=== PATIENT | male | born 1975 | race Caucasian/White ===

== ENCOUNTER 2016-05-15 22:00 | Emergency (ER) | payer SELFPAY ==
[2016-05-15 22:30] LABS: #Basophils 0.1 thou/uL (0.0-0.2); #Eosinphils 0.2 thou/uL (0.0-0.7); #Lymphocytes 2.1 thou/uL (1.20-3.40); #Monocytes 0.8 thou/uL (0.11-0.59); #Neutrophils 5.5 thou/uL (1.40-6.50); %Basophils 1.7 % (0.0-1.0); %Eosinophils 1.8 % (0.0-10.0); %Monocytes 9.5 % (0.0-10.0); Hematocrit 38.3 % (42.0-52.0); Mean Platelet Volume 5.8 fL (7.4-10.4); White Blood Cell (WBC) Count 8.7 thou/uL (4.8-10.8)
[2016-05-15 22:38] LABS: ALT (SGPT) 11 U/L (0-55); AST (SGOT) 18 U/L (5-34); Acetaminophen Less than 3.0 mcg/mL (10.0-30.0); Alkaline Phosphatase 43 U/L (40-150); Anion Gap 14 mmol/L (10-20); BUN (Urea Nitrogen) 15 mg/dL (8.9-20.6); Bilirubin, Total 0.6 mg/dL (0.2-1.2); Calc. Creatinine Clearance 0 mL/min (70-130); Calcium 9.4 mg/dL (7.8-10.44); Carbon Dioxide 23 mmol/L (22-29); Chloride 105 mmol/L (98-107); Estimated GFR-MDRD Greater than 90; Protein, Total 7.3 g/dL (6.0-8.3); Salicylate Less than 5.0 mg/dL (15.0-30.0)
[2016-05-15 22:38] LABS: Bilirubin Negative (Negative); Blood, Urine Trace (Negative); Glucose, Urine (Dipstick) Negative (Negative); Ketone, Urine Negative (Negative); Nitrite Negative (Negative); Protein, Urine (Dipstick) Negative (Neg-Trace)
[2016-05-15 22:39] LABS: Troponin I Less than 0.010 ng/mL (< 0.028)
[2016-05-15 22:42] LABS: RBC/HPF 0-3 HPF (0-3); Squamous Epithelial None Seen HPF (0-3); WBC/HPF None Seen HPF (0-3)
[2016-05-15 22:43] LABS: Bacteria/HPF 1+ HPF (None Seen)
[2016-05-15 22:46] LABS: Methadone Not Detected (NotDetected); Methamphetamine Not Detected (NotDetected)
[2016-05-15] MEDS ORDERED: Levothyroxine Sodium 25 MCG TAB PO SCH (23:30)
[2016-05-15] MEDS ORDERED: Levothyroxine Sodium 100 MCG TAB PO SCH (23:30)
== END 2016-05-16 01:02 | disposition home or self-care (01) ==
LOC: BURERS 22:00
DX: F41.9 Anxiety disorder, unspecified (principal); E03.9 Hypothyroidism, unspecified; F32.9 Major depressive disorder, single episode, unspecified; F17.210 Nicotine dependence, cigarettes, uncomplicated
CPT/HCPCS: 80053; 80306; 80307; 81003; 81015; 82553; 84443; 84484; 85025; 94760